=== PATIENT | male | born 1965 | race Caucasian/White ===

== ENCOUNTER 2017-07-23 10:21 | Outpatient (CLI) | payer BC ==
--- NOTE | 2017-07-23 11:52 | RAD ---
FRONTAL AND LATERAL IMAGING OF THE CHEST: Date: 07-23-17 History: Congestion, cough, low grade fever. FINDINGS: There is no pneumothorax, pleural fluid, focal consolidation or alveolar edema. Heart and mediastinal contours are within normal limits. IMPRESSION: No focal consolidation or alveolar edema. POS: [facility]
== END 2017-07-23 10:22 | disposition home or self-care (01) ==
LOC: SCSRAD 10:21
PROVIDERS: ATTEND Nurse Practitioner Family
DX: Z23 Encounter for immunization (principal)
CPT/HCPCS: 71046

== ENCOUNTER 2019-08-03 13:29 | Outpatient (CLI) | payer BC | END 2019-08-03 13:30 | disposition home or self-care (01) | LOC: CTENTCT 13:29 | PROVIDERS: ATTEND Student in an Organized Health Care Education/Training Program | DX: J32.9 Chronic sinusitis, unspecified (principal) | CPT/HCPCS: 70486 ==

== ENCOUNTER 2019-09-25 06:22 | Outpatient (CLI) | payer BC, OTHER ==
[2019-09-26 19:54] LABS: SARS-CoV-2 MS2 Positive; SARS-CoV-2 N Gene Negative; SARS-CoV-2 S Gene Negative; SARS-CoV-2 orf1ab Negative
--- NOTE | 2019-10-02 23:29 | EKG ---
Test Reason : Blood Pressure : / mmHG Vent. Rate : 089 BPM Atrial Rate : 089 BPM P-R Int : 188 ms QRS Dur : 106 ms QT Int : 364 ms P-R-T Axes : 067 117 056 degrees QTc Int : 442 ms Normal sinus rhythm Incomplete right bundle branch block Possible Right ventricular hypertrophy Cannot rule out Inferior infarct , age undetermined Abnormal ECG No previous ECGs available Confirmed by Sina ARCHER ([id number]) on 10/02/2019 11:28:23 PM Referred By: GOOD Confirmed By:Sina ARCHER
== END 2019-09-25 06:23 | disposition home or self-care (01) ==
LOC: LABBT 06:22
PROVIDERS: ATTEND Student in an Organized Health Care Education/Training Program
DX: Z01.818 Encounter for other preprocedural examination (principal); Z11.59 Encounter for screening for other viral diseases; J34.3 Hypertrophy of nasal turbinates; J33.9 Nasal polyp, unspecified; J30.9 Allergic rhinitis, unspecified; J32.9 Chronic sinusitis, unspecified; H66.90 Otitis media, unspecified, unspecified ear; H69.80 Other specified disorders of Eustachian tube, unspecified ear
CPT/HCPCS: 87635; 93005; 93010; U0003

== ENCOUNTER 2019-09-29 08:28 | Day surgery (SDC) | payer BC ==
[2019-09-25 16:55] VITALS: BMI 34.8
[2019-09-29] MEDS ORDERED: Fentanyl 250 MCG/5 ML VIAL ONE ×2 (09:23→12:51)
[2019-09-29] MEDS ORDERED: AFRIN NASAL MIST 15 ML BOT ONE (09:36)
[2019-09-29] MEDS ORDERED: Acetaminophen 500 MG TAB ONE (10:27)
[2019-09-29] MEDS ORDERED: Midazolam HCl 2 mg/2 ml Vial ONE ×2 (10:27→11:51)
[2019-09-29] MEDS ORDERED: PROPOFOL 200 MG/20 ML VIAL ONE (10:43)
[2019-09-29] MEDS ORDERED: Ketorolac Tromethamine 30 MG/ML VIAL ONE (10:43)
[2019-09-29] MEDS ORDERED: Dexamethasone 20 MG/5 ML VIAL ONE (10:43)
[2019-09-29] MEDS ORDERED: Labetalol HCl 100 MG/20 ML VIAL ONE (10:43)
[2019-09-29] MEDS ORDERED: Rocuronium Bromide 10 MG/ML (10ML VIAL) ONE (10:43)
[2019-09-29] MEDS ORDERED: Lidocaine 1% PF 5 ML VIAL ONE (10:43)
[2019-09-29] MEDS ORDERED: Ondansetron PF 4 MG/2 ML Vial ONE (10:43)
[2019-09-29] MEDS ORDERED: EPINEPHrine 1 MG/ML AMP ONE ×2 (11:40→12:37)
[2019-09-29] MEDS ORDERED: Bacitracin Zinc Ointment 30 gm TUBE ONE (11:40)
[2019-09-29] MEDS ORDERED: Lidocaine 1% w/Epinephrine 1:100K 20 ML VIAL ONE (11:40)
[2019-09-29] MEDS ORDERED: Propofol 500 MG/50 ML VIAL ONE (12:32)
[2019-09-29] MEDS ORDERED: Ketamine 50 MG/ML (10ML VIAL) ONE (12:51)
[2019-09-29] MEDS ORDERED: Propofol 1,000 MG/100 ML VIAL IV ONE (13:13)
[2019-09-29] MEDS ORDERED: Triamcinolone 40 MG/ML VIAL ONE ×2 (13:44→13:47)
--- NOTE | 2019-09-30 12:52 | OP ---
DATE OF PROCEDURE: 09/29/2019 PREOPERATIVE DIAGNOSES: 1. Chronic rhinosinusitis. 2. Nasal congestion. 3. Nasal polyposis. 4. Turbinate hypertrophy. POSTOPERATIVE DIAGNOSES: 1. Chronic rhinosinusitis. 2. Nasal congestion. 3. Nasal polyposis. 4. Turbinate hypertrophy. PROCEDURES PERFORMED: 1. Bilateral image-guided endoscopic sinus surgery. 2. Bilateral maxillary antrostomies with removal of tissue from inside the maxillary sinuses. 3. Bilateral total ethmoidectomy. 4. Bilateral sphenoidotomy. 5. Bilateral frontal sinusotomy. 6. Bilateral inferior turbinate submucosal reductions. 7. Bilateral lateralization of inferior turbinates. 8. Bilateral polypectomy. PERMIT: Procedures, benefits, risks including those of bleeding, infection, injury from anesthesia, allergic reactions, cerebrospinal fluid leak, necessitating revision and repair, and alternatives were reviewed with the patient and family who expressed understanding of the information. The consent form was signed and witnessed and a paper copy of the consent form is available for review in the paper chart. INDICATIONS: This is a 54-year-old male patient, presenting to clinic with exam , findings endoscopically, and radiographic findings as well as symptomatology consistent with chronic rhinosinusitis and recurrent acute sinusitis. The patient is brought to the operating room now for operative treatment. ASSISTANTS: None. FINDINGS: Polypoid tissue in the bilateral nasal cavity and polypoid tissue occluding and obstructing the maxillary sinuses, narrowed and obstructed frontal sinus outflow tract with significant ethmoid air cells as well as narrowed frontal sinus outflow tract, scarred and completely occluded sphenoid sinuses bilaterally. DESCRIPTION OF OPERATION: The patient was brought to the operating room and laid supine on the operating room table. General endotracheal was administered. The septum was infiltrated bilaterally with 1% lidocaine with 1:100,000 epinephrine as well as the axilla and middle turbinates bilaterally and 6 epinephrine-soaked cottonoids were placed bilaterally in the nasal cavity, 3 on each side. The patient was then prepped and draped in the usual fashion. Image guidance was then calibrated and carefully used throughout the entire case for localization. The nose was then evaluated endoscopically and nasal polyposis was removed from the ostiomeatal complex bilaterally and then epinephrine-soaked pledgets were placed bilaterally to stop any bleeding. The oscillating microdebrider was used for removal of the polyposis bilaterally. Next, the sinuses were then evaluated first on the left side and a maxillary antrostomy was completed. The maxillary antrum showed previous operative changes; however, there was polypoid growth and scarring that was occluding much of the left maxillary antrostomy and polypoid tissue, which was removed from the left maxillary sinus. Next, the remaining ethmoid air cells were then taken down, proceeding in an anterior to posterior fashion towards the superior turbinate. After the superior turbinate was identified and the septum and posterior choana were used to identify the sphenoid sinus natural ostia, which was then identified and then opened with a 2 Kerrison, taking care to take down the entire base of the sphenoid sinus and any control of bleeding was achieved with epinephrine-soaked pledgets. After this was achieved, the skull base was identified from a posterior to anterior direction. Ethmoid air cells were removed that were obstructing as well as polypoid tissue with the use of a J curette and curved image guidance suction and a microdebrider as well as an up-biting ethmoid and 2 Kerrison. Care was taken to avoid injury to the cribriform plate and the lamina papyracea. This led straight to the frontal recess, which was opened widely with Kerrison punches as well as with a mushroom punch. After this was performed, the patency was confirmed with curved image-guided suction. Next, epinephrine-soaked pledgets were placed on the left side. Next, attention was turned to the left side. The maxillary antrum was addressed in the same fashion with removal of polypoid tissue that was obstructing the maxillary sinus and polypoid growth inside the maxillary sinus using epinephrine-soaked pledgets to control any bleeding. Next, ethmoid air cells were removed from an anterior to posterior fashion and the superior turbinate was identified as well as the septum and posterior choana and using those landmarks, the sphenoid ostia was identified and the entire face of the sphenoid sinus was opened using a 2 Kerrison and the soft tissue removed with the microdebrider. Small bridging vessels were cauterized with suction Bovie, which were branches of the sphenopalatine artery. Polypoid tissue and scar tissue were present throughout this area of the superior meatus, and then the skull base was identified, and remaining ethmoid air cells and obstructive ethmoid air cells and polypoid tissue were removed from a posterior to anterior fashion, and the frontal recess was then widely opened with a chain Kerrison punch and mushroom punch and the frontal sinus was open and patent and confirmed with curved image-guided suction. After this was performed , hemostasis was achieved with epinephrine-soaked pledget and then a Contour Profile stent was placed in the sphenoid sinus on the left side and then on the right side and a mini Propel was placed in the left and right frontal sinus outflow tracts. At this point, attention was then turned to the bilateral inferior turbinates, which were then performed after injection of 1% lidocaine with 1:100,000 epinephrine 2 mL on each side. A small stab incision was made along the anterior head of the inferior turbinate and elevation of the submucosal pocket was performed with the turbinate blade of oscillating microdebrider. After this was completed, with the oscillating microdebrider, the turbinate blade was then used to remove the erectile tissue from inside the inferior turbinate on the left side. After this was performed, the turbinate was then lateralized using a Whitehead elevator. Next, attention was turned to the right side and the turbinate blade on the oscillating microdebrider was again used to make a stab incision along the anterior inferior head of the inferior turbinate and a submucosal pocket was then developed and then the debrider was used to remove erectile tissue from inside the inferior turbinate on the right side. After this was performed, the inferior turbinate was then lateralized. At this point, the sinuses were irrigated with a curved irrigation and a 50 mL syringe. The maxillary sinuses and the sphenoid and frontal sinuses were irrigated and then suctioned clear. Any remaining bleeding was controlled with epinephrine-soaked pledgets and then all the irrigation was suctioned clear. There was no remaining purulence or mucus remaining. There was no bleeding. All the sinuses were confirmed patent and open with image guidance. The patient was then turned over to Anesthesia for emergence. The patient was then allowed to wake up from anesthesia and then was transferred to the PACU with anesthesia. There were not complications. Job ID: [id number] [id number]
== END 2019-09-29 16:40 | disposition home or self-care (01) ==
LOC: SDC 08:28
PROVIDERS: ATTEND Student in an Organized Health Care Education/Training Program
PROC: 09BL8ZZ Excision of Nasal Turbinate, Via Natural or Artificial Opening Endoscopic (ICD-10-PCS; principal; 2019-09-29)
PROC: 099W8ZZ Drainage of Right Sphenoid Sinus, Via Natural or Artificial Opening Endoscopic (ICD-10-PCS; principal; 2019-09-29)
PROC: 099R8ZZ Drainage of Left Maxillary Sinus, Via Natural or Artificial Opening Endoscopic (ICD-10-PCS; principal; 2019-09-29)
PROC: 09BV8ZZ Excision of Left Ethmoid Sinus, Via Natural or Artificial Opening Endoscopic (ICD-10-PCS; principal; 2019-09-29)
PROC: 09BS8ZZ Excision of Right Frontal Sinus, Via Natural or Artificial Opening Endoscopic (ICD-10-PCS; principal; 2019-09-29)
PROC: 09BT8ZZ Excision of Left Frontal Sinus, Via Natural or Artificial Opening Endoscopic (ICD-10-PCS; principal; 2019-09-29)
PROC: 09BU8ZZ Excision of Right Ethmoid Sinus, Via Natural or Artificial Opening Endoscopic (ICD-10-PCS; principal; 2019-09-29)
PROC: 099Q8ZZ Drainage of Right Maxillary Sinus, Via Natural or Artificial Opening Endoscopic (ICD-10-PCS; principal; 2019-09-29)
PROC: 099X8ZZ Drainage of Left Sphenoid Sinus, Via Natural or Artificial Opening Endoscopic (ICD-10-PCS; principal; 2019-09-29)
DX: J32.9 Chronic sinusitis, unspecified (principal); J33.9 Nasal polyp, unspecified; J34.3 Hypertrophy of nasal turbinates; J30.9 Allergic rhinitis, unspecified; H69.80 Other specified disorders of Eustachian tube, unspecified ear; G47.33 Obstructive sleep apnea (adult) (pediatric); K21.9 Gastro-esophageal reflux disease without esophagitis; Z79.899 Other long term (current) drug therapy
CPT/HCPCS: C2625; J0171; J1100; J1885; J2001; J2250; J2405; J2704; J3010; J3301